=== PATIENT | female | born 1940 ===

== ENCOUNTER 2021-10-13 09:43 | Inpatient (IN) ==
[2021-10-13] MEDS: Baricitinib 2 MG TAB (NF) PO SCH (17:10)
[2021-10-13] MEDS: cefTRIAXone 1 gm/50 mL NS BAG 1 GM/50 ML BAG IVPB SCH (17:32)
[2021-10-13] MEDS ORDERED: NS 0.9% 250 ml 250 ML ONE (20:55)
[2021-10-13] MEDS: Enoxaparin 30 MG/0.3 ML SYR SUBCUT SCH (20:58)
[2021-10-13] MEDS: Azithromycin 500 mg/250 ml NS 500 MG/250 ML BAG IVPB SCH (20:58)
[2021-10-13] MEDS: Remdesivir 100 mg Vial 100 MG in NS 0.9% 250 ml 230 ML IV SCH (22:02)
[2021-10-14 04:34] LABS: ABS Lymphocytes 1.7 10^3/ul (1.0-4.8); ABS Monocytes 0.5 10^3/ul (0-0.8); ABS Neutrophils 8.7 10^3/ul (1.5-7.7); Hematocrit 38 % (35-47); Hemoglobin 12.6 g/dL (12.0-16.0); Lymphocyte % 15.4 %; Mean Corpuscular HGB Conc 34 g/dL (31-36); Mean Corpuscular Hemoglobin 31 pg (27-31); Mean Corpuscular Volume 91 fL (80-97); Mean Platelet Volume 7.5 fL (7.4-10.4); Platelet Count 611 10^3/uL (150-450); Red Blood Count 4.12 10^6 /uL (3.70-4.87); Red Cell Distribution Width 14 % (10-15)
[2021-10-14 04:45] LABS: INR 1.26 (0.86-1.15)
[2021-10-14 04:51] LABS: Albumin 3.4 g/dL (3.2-5.2); Albumin/Globulin Ratio 1.1 (1-3); Calcium 8.9 mg/dL (8.6-10.3); Magnesium 2.3 mg/dL (1.9-2.7); Phosphorus 2.2 mg/dL (2.5-5.0); Potassium 3.6 mmol/L (3.5-5.0); Total Bilirubin 0.5 mg/dL (0.2-1.0); Total Protein 6.4 g/dL (6.4-8.9); eGFR CKD-EPI 90.7 (>60)
[2021-10-14] MEDS: Potassium Phosphate IV 15 MMOLE in NS 0.9% 250 ml 250 ML IVPB ONE ×2 (06:41→07:02)
[2021-10-14] MEDS ORDERED: NS 0.9% 250 ml 250 ML ONE (06:42)
[2021-10-14] MEDS: Dexamethasone IV 4 MG/ML VIAL 1 ml VIAL IV SLOW PU SCH (08:49)
[2021-10-14] MEDS: Enoxaparin 30 MG/0.3 ML SYR SUBCUT SCH ×2 (08:49→21:30)
[2021-10-14] MEDS: cefTRIAXone 1 gm/50 mL NS BAG 1 GM/50 ML BAG IVPB SCH (21:29)
[2021-10-14] MEDS: Baricitinib 2 MG TAB (NF) PO SCH (21:29)
[2021-10-14] MEDS: Azithromycin 500 mg/250 ml NS 500 MG/250 ML BAG IVPB SCH (21:30)
[2021-10-14] MEDS: Remdesivir 100 mg Vial 100 MG in NS 0.9% 250 ml 230 ML IV SCH (21:30)
[2021-10-15 06:56] LABS: Hematocrit 32 % (35-47); Hemoglobin 11.2 g/dL (12.0-16.0); Mean Corpuscular HGB Conc 35 g/dL (31-36); Mean Corpuscular Hemoglobin 32 pg (27-31); Mean Corpuscular Volume 91 fL (80-97); Mean Platelet Volume 7.3 fL (7.4-10.4); Platelet Count 496 10^3/uL (150-450); Red Blood Count 3.53 10^6 /uL (3.70-4.87); Red Cell Distribution Width 14 % (10-15); White Blood Count 7.5 10^3/uL (3.5-10.8)
[2021-10-15 07:23] LABS: Albumin/Globulin Ratio 1.2 (1-3); Calcium 8.2 mg/dL (8.6-10.3); Globulin 2.5 g/dL (2-4); Phosphorus 2.5 mg/dL (2.5-5.0); Potassium 3.6 mmol/L (3.5-5.0); Total Bilirubin 0.6 mg/dL (0.2-1.0); Total Protein 5.5 g/dL (6.4-8.9); eGFR CKD-EPI 94.8 (>60)
[2021-10-15] MEDS: Enoxaparin 30 MG/0.3 ML SYR SUBCUT SCH ×2 (09:34→20:33)
[2021-10-15] MEDS: Dexamethasone IV 4 MG/ML VIAL 1 ml VIAL IV SLOW PU SCH (09:34)
[2021-10-15] MEDS: cefTRIAXone 1 gm/50 mL NS BAG 1 GM/50 ML BAG IVPB SCH (18:06)
[2021-10-15] MEDS: Baricitinib 2 MG TAB (NF) PO SCH (20:33)
[2021-10-15] MEDS: Azithromycin 500 mg/250 ml NS 500 MG/250 ML BAG IVPB SCH (20:54)
[2021-10-15] MEDS ORDERED: Senna TAB 8.6 mg TAB PO PRN (20:58)
[2021-10-15] MEDS ORDERED: Polyethylene Glycol 3350 17 GM PACKET PO PRN (20:58)
[2021-10-15] MEDS: Remdesivir 100 mg Vial 100 MG in NS 0.9% 250 ml 230 ML IV SCH (23:33)
[2021-10-16 04:49] LABS: Hematocrit 36 % (35-47); Hemoglobin 12.2 g/dL (12.0-16.0); Mean Corpuscular HGB Conc 34 g/dL (31-36); Mean Corpuscular Hemoglobin 31 pg (27-31); Mean Corpuscular Volume 91 fL (80-97); Mean Platelet Volume 7.1 fL (7.4-10.4); Platelet Count 540 10^3/uL (150-450); Red Blood Count 3.94 10^6 /uL (3.70-4.87); Red Cell Distribution Width 14 % (10-15); White Blood Count 7.8 10^3/uL (3.5-10.8)
[2021-10-16 04:55] LABS: INR 1.25 (0.86-1.15)
[2021-10-16 05:05] LABS: Albumin 3.3 g/dL (3.2-5.2); Albumin/Globulin Ratio 1.2 (1-3); Calcium 8.4 mg/dL (8.6-10.3); Globulin 2.7 g/dL (2-4); Magnesium 2.1 mg/dL (1.9-2.7); Phosphorus 2.8 mg/dL (2.5-5.0); Potassium 3.5 mmol/L (3.5-5.0); Total Bilirubin 0.6 mg/dL (0.2-1.0)
[2021-10-16] MEDS ORDERED: Potassium Chloride LIQUID 20 MEQ/15 ML LIQUID PO ONE (06:43)
[2021-10-16] MEDS: Dexamethasone IV 4 MG/ML VIAL 1 ml VIAL IV SLOW PU SCH (08:28)
[2021-10-16] MEDS: Enoxaparin 30 MG/0.3 ML SYR SUBCUT SCH ×2 (08:28→21:18)
[2021-10-16] MEDS: KCL 20 MEQ/100 ML IVPREMIX 20 MEQ/100 ML BAG IV SCH ×2 (08:33→11:06)
[2021-10-16] MEDS ORDERED: Furosemide 20 mg/2 ml IV VIAL IV SLOW PU ONE (09:18)
[2021-10-16] MEDS: Baricitinib 2 MG TAB (NF) PO SCH (16:20)
[2021-10-16] MEDS: cefTRIAXone 1 gm/50 mL NS BAG 1 GM/50 ML BAG IVPB SCH (17:30)
[2021-10-16] MEDS: Azithromycin 500 mg/250 ml NS 500 MG/250 ML BAG IVPB SCH (21:18)
[2021-10-17 06:31] LABS: Calcium 8.5 mg/dL (8.6-10.3); eGFR CKD-EPI 94.8 (>60)
[2021-10-17] MEDS: Dexamethasone IV 4 MG/ML VIAL 1 ml VIAL IV SLOW PU SCH (11:16)
[2021-10-17] MEDS: Enoxaparin 30 MG/0.3 ML SYR SUBCUT SCH ×2 (11:16→21:18)
[2021-10-17] MEDS: Baricitinib 2 MG TAB (NF) PO SCH (17:33)
[2021-10-17] MEDS: cefTRIAXone 1 gm/50 mL NS BAG 1 GM/50 ML BAG IVPB SCH (17:35)
[2021-10-17] MEDS: Azithromycin 500 mg/250 ml NS 500 MG/250 ML BAG IVPB SCH (21:18)
[2021-10-18] MEDS: Dexamethasone IV 4 MG/ML VIAL 1 ml VIAL IV SLOW PU SCH (10:05)
[2021-10-18] MEDS: Enoxaparin 30 MG/0.3 ML SYR SUBCUT SCH (10:05)
[2021-10-18 16:45] VITALS: BP 110/54
[2021-10-18] MEDS: Baricitinib 2 MG TAB (NF) PO SCH (17:16)
== END 2021-10-18 17:45 | disposition home or self-care (01) | DRG 177 ==
LOC: ICU 11:42 → SUATTDRO 11:42 → MED 10-16 19:42
PROVIDERS: ADMIT Internal Medicine; ATTEND Internal Medicine